=== PATIENT | female | born 1960 | race Caucasian/White ===

== ENCOUNTER → 2016-07-22 | Outpatient (CLI) | payer OTHER ==
[~2016-07-22] MED LIST: ADIPEX-P37.5 MG PO; ASPIR 8181 M1 PO; ASPIR 8181 MG PO; IBANDRONATE SO150 MG PO; LANSOPRAZOLE30 MG PO; LIPITOR10 MG PO; METFORMIN HCL500 MG PO; RED YEAST RICE600 M1 PO; UNICOMPLEX M TA1 TA1 PO; VITAMIN B-6100 MG PO; VITAMIN D2000 UNIT PO; VITAMIN E400 UNIT PO; VITAMINC500 PO; ZOLOFT25 MG PO
== END ==
LOC: GI 04-24 13:02
DX: Z53.9 Procedure and treatment not carried out, unspecified reason (principal)